=== PATIENT | male | born 1965 | race Caucasian/White ===

== ENCOUNTER 2024-03-22 23:07 | Emergency (ER) | payer BC, MEDICAID ==
[~2024-03-22] VITALS: Ht 172.7 cm; Wt 70.9 kg
[~2024-03-22 23:07] MED LIST: ALBU18HF2 PO; BEE POLLEN; BEETROOT; BREX0.5T PO; FLO0.4C PO; FLUT1BLS4 INH; HYDR50TA65 PO; MVI; SHILAJIT; VITAMIN C; VITAMIN E
[2024-03-22 23:21] VITALS: BP 117/87; PULSE 101; RESP 18; TEMP 98.3; O2SAT 98
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
--- NOTE | 2024-03-22 23:28 | NUR ---
CASE # [id number]
== END 2024-03-23 01:24 | disposition left against medical advice (07) ==
LOC: ER 23:08
DX: S09.8XXA Other specified injuries of head, initial encounter (principal); Z88.8 Allergy status to other drugs, medicaments and biological substances; Z53.21 Procedure and treatment not carried out due to patient leaving prior to being seen by health care provider; W18.39XA Other fall on same level, initial encounter; Y93.89 Activity, other specified; Y92.89 Other specified places as the place of occurrence of the external cause; Y99.8 Other external cause status

== ENCOUNTER 2024-10-25 10:20 | Outpatient (CLI) | payer BC, MEDICAID ==
[~2024-10-25] VITALS: Ht 172.7 cm; Wt 68.0 kg
[~2024-10-25 10:20] MED LIST changes: +ALBU6.7H14 INH; +ALBU8.5H17 IH; +AZIT250T PO; +DIPH25CA83 PO; -FLO0.4C PO; +TAMS-55 PO
[2024-10-25 11:21] VITALS: PULSE 113; RESP 18; O2SAT 96
[2024-10-25] MEDS: albuterol 2.5 MG/3 ML nebule NEB ONE (11:35)
[2024-10-25 11:36] VITALS: PULSE 108; RESP 18
== END 2024-10-25 23:59 | disposition home or self-care (01) ==
LOC: RT 10:20
PROVIDERS: ATTEND Family Medicine
DX: J44.9 Chronic obstructive pulmonary disease, unspecified (principal)
CPT/HCPCS: 94060; 94729; 94760